=== PATIENT | female | born 1955 | race Caucasian/White ===

== ENCOUNTER → 2016-07-31 | Outpatient (CLI) | payer BC | END | disposition home or self-care (01) | LOC: LABWHC1 13:03 | PROVIDERS: ATTEND Internal Medicine Endocrinology, Diabetes & Metabolism | DX: E05.00 Thyrotoxicosis with diffuse goiter without thyrotoxic crisis or storm (principal) | CPT/HCPCS: 36415; 82306; 84439; 84443 ==

== ENCOUNTER → 2016-09-26 | Outpatient (CLI) | payer BC ==
[2016-09-26 15:29] LABS: CH 31.4; CHCM 33.7; HCT 39.3 % (34.0-46.0); HGB 12.9 gm/dL (11.4-16.0); MCH 30.8 pg (25.0-35.0); MCHC 32.9 g/dL (31.0-37.0); MCV 93.7 fL (80.0-100.0); Mean Platelet Volume 6.9; RDW 12.8 % (11.5-15.5); WBC 5.4 k/uL (3.8-10.6)
[2016-09-26 15:51] LABS: ALT 25 U/L (9-52); AST 13 U/L (14-36); Alkaline Phosphatase 82 U/L (38-126); Anion Gap 10 mmol/L; Bilirubin, Delta 0.2 mg/dL (0.0-0.2); Blood Urea Nitrogen 13 mg/dL (7-17); C Reactive Protein 44.7 mg/L (<10.0); Calcium 9.6 mg/dL (8.4-10.2); Carbon Dioxide 28 mmol/L (22-30); Chloride 105 mmol/L (98-107); Glucose 94 mg/dL (74-99); Non-African American GFR(MDRD) >60 (>60 ml/min/1.73 sqM); Potassium 5.1 mmol/L (3.5-5.1); Rheumatoid Factor, Qnt 73 IU/mL (<12); Sodium 143 mmol/L (137-145); Total Bilirubin 0.7 mg/dL (0.2-1.3); Total Protein 6.8 g/dL (6.3-8.2); Uric Acid 5.9 mg/dL (3.7-7.4)
[2016-09-26 16:18] LABS: Erythrocyte Sedimentation Rate 24 mm/hr (0-20)
[2016-09-26 18:37] LABS: RBC, Body Fluid 130 /uL
[2016-09-27 02:13] LABS: ANA w/Reflex to Titer NEGATIVE (NEGATIVE)
[2016-09-27 05:13] LABS: Lyme Antibodies Total(IgG/IgM) 0.05 (<0.90)
[2016-09-27 07:27] LABS: Synovial Crystal Source Left Knee
[2016-09-27 12:53] LABS: HLA B27 NEGATIVE; HLA B27 Comment SEEBELOW
== END ==
LOC: LABWHC1 14:30 → EDSTATUS 14:32
PROVIDERS: ATTEND Orthopaedic Surgery
DX: M79.644 Pain in right finger(s) (principal); M65.321 Trigger finger, right index finger; M25.511 Pain in right shoulder; M65.811 Other synovitis and tenosynovitis, right shoulder; M25.562 Pain in left knee
CPT/HCPCS: 36415; 80053; 80306; 82248; 83520; 84165; 84443; 84550; 85027; 85652; 86038; 86060; 86140; 86431; 86618; 86812; 87070; 87205; 89050; 89060

== ENCOUNTER → 2016-10-06 | Outpatient (CLI) | payer BC | LOC: LABWHC1 11:32 | PROVIDERS: ATTEND Internal Medicine Endocrinology, Diabetes & Metabolism | DX: E05.00 Thyrotoxicosis with diffuse goiter without thyrotoxic crisis or storm (principal); E04.1 Nontoxic single thyroid nodule | CPT/HCPCS: 36415; 82306; 84439; 84443 ==

== ENCOUNTER → 2017-01-16 | Outpatient (CLI) | payer BC ==
--- NOTE | 2017-01-18 08:53 | MM ---
Reason for exam: screening (asymptomatic). Last mammogram was performed 1 year and 1 month ago. History: Patient is postmenopausal. Took hormonal contraceptives for 4 years beginning at age 46. Physical Findings: A clinical breast exam by your physician is recommended on an annual basis and results should be correlated with mammographic findings. MG 3D Screening Mammo W/Cad Bilateral CC and MLO view(s) were taken. Prior study comparison: December 29, 2015, bilateral MG screening mammo w CAD. December 14, 2014, bilateral MG screening mammo w CAD. November 26, 2013, bilateral MG screening mammo w CAD. The breast tissue is almost entirely fat. No significant changes when compared with prior studies. ASSESSMENT: Negative, BI-RAD 1 RECOMMENDATION: Routine screening mammogram of both breasts in 1 year.
== END | disposition home or self-care (01) ==
LOC: RADMAMWWP 11:56
PROVIDERS: ATTEND Obstetrics & Gynecology
DX: Z12.31 Encounter for screening mammogram for malignant neoplasm of breast (principal)
CPT/HCPCS: 77063; G0202

== ENCOUNTER → 2017-01-31 | Outpatient (CLI) | payer BC | LOC: LABWHC1 11:36 | PROVIDERS: ATTEND Internal Medicine Endocrinology, Diabetes & Metabolism | DX: E89.0 Postprocedural hypothyroidism (principal) | CPT/HCPCS: 36415; 84439; 84443 ==

== ENCOUNTER → 2017-06-05 | Outpatient (CLI) | payer BC ==
[2017-06-05 14:14] LABS: Calcium 10.1 mg/dL (8.4-10.2)
== END | disposition home or self-care (01) ==
LOC: LABWHC1 13:21
PROVIDERS: ATTEND Internal Medicine Endocrinology, Diabetes & Metabolism
DX: E89.0 Postprocedural hypothyroidism (principal)
CPT/HCPCS: 36415; 82306; 82310; 82523; 84075; 84439; 84443

== ENCOUNTER 2017-08-10 16:29 | Emergency (ER) | payer BC ==
[2017-08-10 17:04] VITALS: BP 142/65; PULSE 78; RESP 18; TEMP 97.6
[2017-08-10] MEDS ORDERED: DIPH,PERTUS(ACELL)TETVAC-LF 0.5 ML VIAL IM ONE (17:35)
--- NOTE | 2017-08-10 17:44 | XR ---
EXAMINATION TYPE: XR wrist limited RT DATE OF EXAM: 08/10/2017 COMPARISON: NONE HISTORY: Wrist pain TECHNIQUE: 4 views FINDINGS: I see no fracture nor dislocation. Joint spaces are normal. There is no sign of radiopaque foreign body. There is soft tissue deformity anteriorly consistent with laceration. IMPRESSION: Laceration deformity. No fracture seen.
--- NOTE | 2017-08-10 19:05 | ED ---
Wound/Laceration HPI - General Chief Complaint: Wound/Laceration Stated Complaint: Wrist Laceration Time Seen by Provider: 08/10/17 17:17 Source: patient, RN notes reviewed Mode of arrival: ambulatory Limitations: no limitations - History of Present Illness Initial Comments: This is a 62-year-old female who presents to the emergency department with chief complaint of right wrist laceration. Patient states that prior to arrival , this evening she was shopping at [employer]. She reached up to grab an object high on the shelf and bumped her right wrist against the glass shelf edge. At first, patient did not realize she had lacerated her wrist. When she got to the register, she noticed that she was bleeding. On presentation, bleeding is controlled. Patient states she does not believe she is up-to-date with her tetanus vaccination. Patient denies any other injuries or trauma. Denies fever or chills, cough or congestion, abdominal pain, nausea or vomiting , dizziness or headache. - Related Data Allergies Allergy/AdvReac Type Severity Reaction Status Date / Time No Known Allergies Allergy Verified 08/10/17 17:04 Review of Systems ROS Statement: Those systems with pertinent positive or pertinent negative responses have been documented in the HPI. ROS Other: All systems not noted in ROS Statement are negative. Past Medical History Past Medical History: Rheumatoid Arthritis (RA) History of Any Multi-Drug Resistant Organisms: None Reported Past Surgical History: No Surgical Hx Reported Past Psychological History: No Psychological Hx Reported Smoking Status: Never smoker Past Alcohol Use History: Occasional Past Drug Use History: None Reported General Exam - General Exam Comments Initial Comments: General: Awake and alert, well-developed; in no apparent distress. is at bedside. HEENT: Head atraumatic, normocephalic. Pupils are equal, round and reactive to light. Extraocular movements intact. Oropharynx moist without erythema or exudate. Neck: Supple. Normal ROM. Cardiovascular: Regular rate and rhythm. No murmurs, rubs or gallops. Chest symmetrical. Respiratory: Lungs clear to auscultation bilaterally. No wheezes, rales or rhonchi. Normal respiratory effort with no use of accessory muscles. Musculoskeletal: Normal active range of motion of right wrist, hand and fingers. Capillary refill < 2 seconds. Sensation is intact. There is an approximately 2.0 inch linear laceration anterior wrist. Radial pulses are 2+ equal and palpable bilaterally. No active bleeding. Skin: [place], warm and dry without rashes or lesions. Neurological: Alert and oriented x3. CN II-XII grossly intact. Speech is fluent and answers are appropriate. No focal neuro deficits. Psychiatric: Normal mood and affect. No overt signs of depression or anxiety noted. Limitations: no limitations Course Vital Signs 08/10/17 17:01 Temperature 97.6 F Pulse Rate 78 Respiratory 18 Rate Blood Pressure 142/65 O2 Sat by Pulse 98 Oximetry Procedures - Laceration Laceration #1 Consent Obtained: verbal consent Indication: laceration Site: upper extremity (right anterior wrist) Size (cm): 5 Description: linear Depth: involves muscle layer Anesthesia Technique: local infiltration Amount (mls): 5 Pre-repair: wound explored, irrigated extensively, deep structures intact Type of Sutures: nylon, vicryl Size of Sutures: 4-0 (vicryl), 5-0 (nylon) Number of Sutures: 9 (8 nylon) Technique: simple, interrupted Patient Tolerated Procedure: well, no complications Medical Decision Making - Medical Decision Making This is a 62-year-old female who presented to the emergency department with chief complaint of right wrist laceration. Patient has full active range of motion of all fingers and wrist. No active bleeding. Sensation is intact. Radial pulses are 2+ equal and palpable bilaterally. Tendon was visualized on physical examination with suspicion for possible laceration to the tendon. Strongly recommended follow up with Jose Rafael Lara for further evaluation. 8 external nylon sutures and one internal Vicryl suture were placed. Recommended removal of the external sutures in 10-14 days. Patient tolerated well without complication and is neurovascularly intact. She was made up-to-date with her tetanus vaccination. Patient is in no acute distress and will be discharged home. She is in agreement with plan and voices understanding. All questions were answered. Disposition Clinical Impression: Laceration of right wrist Disposition: HOME SELF-CARE Condition: Good Instructions: Laceration (ED), Tendon Laceration (ED) Additional Instructions: Please follow-up with Dr. Jose Rafael Lara within 1-2 days for further evaluation of possible tendon laceration. Please keep sutures clean and dry for the next 24-48 hours. Please have these external sutures removed in 10-14 days either here at the emergency department or with primary care provider. May apply ice and take Tylenol or ibuprofen as needed for pain. Please return to the emergency department if any concerns arise or symptoms worsen. Referrals: Pedro Carrington MD [Primary Care Provider] - 1-2 days Naman Lara DO [Doctor of Osteopathic Medicine] - 1-2 days Time of Disposition: 19:05
== END 2017-08-10 19:10 | disposition home or self-care (01) ==
LOC: EC 16:29
DX: S61.511A Laceration without foreign body of right wrist, initial encounter (principal); Z23 Encounter for immunization; W22.8XXA Striking against or struck by other objects, initial encounter; Y93.89 Activity, other specified; Y92.89 Other specified places as the place of occurrence of the external cause
CPT/HCPCS: 12042; 90471; 90715; 99282

== ENCOUNTER → 2017-10-18 | Outpatient (CLI) | payer BC ==
[2017-10-18 11:21] LABS: T4, Free (Free Thyroxine) 1.13 ng/dL (0.78-2.19)
== END | disposition home or self-care (01) ==
LOC: LABWHC1 10:17
PROVIDERS: ATTEND Internal Medicine Endocrinology, Diabetes & Metabolism
DX: E89.0 Postprocedural hypothyroidism (principal)
CPT/HCPCS: 36415; 84439; 84443

== ENCOUNTER → 2018-02-15 | Outpatient (CLI) | payer BC ==
[2018-02-15 11:46] LABS: T4, Free (Free Thyroxine) 1.29 ng/dL (0.78-2.19)
== END | disposition home or self-care (01) ==
LOC: LABWHC1 10:24
PROVIDERS: ATTEND Internal Medicine Endocrinology, Diabetes & Metabolism
DX: E89.0 Postprocedural hypothyroidism (principal)
CPT/HCPCS: 36415; 84439; 84443

== ENCOUNTER → 2018-02-19 | Outpatient (CLI) | payer BC ==
--- NOTE | 2018-02-26 10:08 | MM ---
Reason for exam: screening (asymptomatic). Last mammogram was performed 1 year and 1 month ago. History: Patient is postmenopausal. Took hormonal contraceptives for 4 years beginning at age 46. Physical Findings: A clinical breast exam by your physician is recommended on an annual basis and results should be correlated with mammographic findings. MG 3D Screening Mammo W/Cad Bilateral CC and MLO view(s) were taken. Prior study comparison: January 16, 2017, bilateral MG 3d screening mammo w/cad. December 29, 2015, bilateral MG screening mammo w CAD. There are scattered fibroglandular densities. There is benign appearing round calcifications bilaterally. There is chronic nodularity bilaterally. There is no discrete abnormality. ASSESSMENT: Benign, BI-RAD 2 RECOMMENDATION: Routine screening mammogram of both breasts in 1 year.
== END | disposition home or self-care (01) ==
LOC: RADMAMWWP 10:52
PROVIDERS: ATTEND Obstetrics & Gynecology
DX: Z12.31 Encounter for screening mammogram for malignant neoplasm of breast (principal)
CPT/HCPCS: 77063; 77067

== ENCOUNTER → 2018-05-21 | Outpatient (CLI) | payer BC ==
[2018-05-21 19:38] LABS: T4, Free (Free Thyroxine) 1.2 ng/dL (0.80-1.80)
== END | disposition home or self-care (01) ==
LOC: LABWHC1 13:10
PROVIDERS: ATTEND Internal Medicine Endocrinology, Diabetes & Metabolism
DX: E89.0 Postprocedural hypothyroidism (principal)
CPT/HCPCS: 36415; 84439; 84443

== ENCOUNTER → 2019-03-19 | Outpatient (CLI) | payer BC ==
--- NOTE | 2019-03-20 13:39 | MM ---
Reason for exam: screening (asymptomatic). Last mammogram was performed 1 year and 1 month ago. History: Patient is postmenopausal. Took hormonal contraceptives for 4 years beginning at age 46. Physical Findings: A clinical breast exam by your physician is recommended on an annual basis and results should be correlated with mammographic findings. MG 3D Screening Mammo W/Cad Bilateral CC and MLO view(s) were taken. Prior study comparison: February 19, 2018, bilateral MG 3d screening mammo w/cad. January 16, 2017, bilateral MG 3d screening mammo w/cad. There are scattered fibroglandular densities. There is no discrete abnormality. No significant changes when compared with prior studies. ASSESSMENT: Negative, BI-RAD 1 RECOMMENDATION: Routine screening mammogram of both breasts in 1 year.
== END | disposition home or self-care (01) ==
LOC: RADMAMWWP 08:48
PROVIDERS: ATTEND Obstetrics & Gynecology
DX: Z12.31 Encounter for screening mammogram for malignant neoplasm of breast (principal)
CPT/HCPCS: 77063; 77067

== ENCOUNTER → 2019-05-05 | Outpatient (CLI) | payer BC ==
--- NOTE | 2019-05-06 07:43 | ECHOF ---
Referral Reason:I34.1 Mitral valve prolasp MEASUREMENTS -------- HEIGHT: 172.7 cm WEIGHT: 78.5 kg BP: RVIDd: 3.0 cm (< 3.3) IVSd: 1.2 cm (0.6 - 1.1) LVIDd: 4.6 cm (3.9 - 5.3) LVPWd: 1.5 cm (0.6 - 1.1) IVSs: 1.9 cm LVIDs: 2.7 cm LVPWs: 1.8 cm LAESV Index (A-L): 50.03 ml/m Ao Diam: 3.1 cm (2.0 - 3.7) AV Cusp: 2.0 cm (1.5 - 2.6) LA Diam: 2.9 cm (2.7 - 3.8) MV EXCURSION: 15.618 mm (> 18.000) MV EF SLOPE: 72 mm/s (70 - 150) EPSS: 0.4 cm MV E Hira: 1.04 m/s MV DecT: 238 ms MV A Hira: 0.90 m/s MV E/A Ratio: 1.15 AR PHT: 507 ms RAP: 5.00 mmHg RVSP: 37.86 mmHg FINDINGS -------- Sinus rhythm. This was a technically good study. The left ventricular size is normal. There is mild concentric left ventricular hypertrophy. Overa ll left ventricular systolic function is normal with, an EF between 60 - 65 %. The diastolic fillin g pattern is normal for the age of the patient 14.33. The right ventricle is normal in size. LA is severely dilated >40 ml/m2 The right atrial size is normal. Interatrial and interventricular septum intact. There is mild aortic valve sclerosis. There is xnjc-[id number] aortic regurgitation. The mitral valve leaflets are moderately thickened. Moderate mitral regurgitation is present. The re is moderate mitral valve prolapse. Mild tricuspid regurgitation present. There is mild pulmonary hypertension. The right ventricular systolic pressure, as measured by Doppler, is 37.86mmHg. There is no pulmonic regurgitation present. The aortic root size is normal. The inferior vena cava is mildly dilated. There is no pericardial effusion. CONCLUSIONS -------- 1. Sinus rhythm. 2. This was a technically good study. 3. The left ventricular size is normal. 4. There is mild concentric left ventricular hypertrophy. 5. Overall left ventricular systolic function is normal with, an EF between 60 - 65 %. 6. The diastolic filling pattern is normal for the age of the patient 14.33 7. The right ventricle is normal in size. 8. LA is severely dilated >40 ml/m2 9. The right atrial size is normal. 10. Interatrial and interventricular septum intact. 11. There is mild aortic valve sclerosis. 12. There is ojwf-[id number] aortic regurgitation. 13. The mitral valve leaflets are moderately thickened. 14. There is moderate mitral valve prolapse. 15. Mild tricuspid regurgitation present. 16. There is mild pulmonary hypertension. 17. The right ventricular systolic pressure, as measured by Doppler, is 37.86mmHg. 18. There is no pulmonic regurgitation present. 19. The aortic root size is normal. 20. The inferior vena cava is mildly dilated. 21. There is no pericardial effusion. RESOURCE ENGINEER: Phoebe Rivera RDCS
== END | disposition home or self-care (01) ==
LOC: RADECHMAIN 12:50
PROVIDERS: ATTEND Internal Medicine
DX: I08.2 Rheumatic disorders of both aortic and tricuspid valves (principal); I27.20 Pulmonary hypertension, unspecified
CPT/HCPCS: 93306

== ENCOUNTER → 2020-03-18 | Outpatient (CLI) | payer MEDICARE ==
--- NOTE | 2020-03-19 11:05 | MM ---
Reason for exam: screening (asymptomatic). Last mammogram was performed 1 year ago. History: Patient is postmenopausal. Took hormonal contraceptives for 4 years beginning at age 46. Physical Findings: A clinical breast exam by your physician is recommended on an annual basis and results should be correlated with mammographic findings. MG 3D Screening Mammo W/Cad Bilateral CC and MLO view(s) were taken. Prior study comparison: March 19, 2019, bilateral MG 3d screening mammo w/cad. February 19, 2018, bilateral MG 3d screening mammo w/cad. There are scattered fibroglandular densities. No significant changes when compared with prior studies. ASSESSMENT: Benign, BI-RAD 2 RECOMMENDATION: Routine screening mammogram of both breasts in 1 year.
== END | disposition home or self-care (01) ==
LOC: RADMAMWWP 16:14
PROVIDERS: ATTEND Obstetrics & Gynecology
DX: Z12.31 Encounter for screening mammogram for malignant neoplasm of breast (principal)
CPT/HCPCS: 77063; 77067

== ENCOUNTER → 2021-03-28 | Outpatient (CLI) | payer MEDICARE ==
--- NOTE | 2021-03-29 09:43 | MM ---
Reason for exam: screening (asymptomatic). Last mammogram was performed 1 year ago. History: Patient is postmenopausal. Took hormonal contraceptives for 4 years beginning at age 46. Physical Findings: A clinical breast exam by your physician is recommended on an annual basis and results should be correlated with mammographic findings. MG 3D Screening Mammo W/Cad Bilateral CC and MLO view(s) were taken. Prior study comparison: March 18, 2020, bilateral MG 3d screening mammo w/cad. March 19, 2019, bilateral MG 3d screening mammo w/cad. February 19, 2018, bilateral MG 3d screening mammo w/cad. There are scattered fibroglandular densities. There are benign appearing round calcifications bilaterally. There is no discrete abnormality. ASSESSMENT: Benign, BI-RAD 2 RECOMMENDATION: Routine screening mammogram of both breasts in 1 year.
== END | disposition home or self-care (01) ==
LOC: RADMAMWWP 11:56
PROVIDERS: ATTEND Obstetrics & Gynecology
DX: Z12.31 Encounter for screening mammogram for malignant neoplasm of breast (principal); Z78.0 Asymptomatic menopausal state
CPT/HCPCS: 77063; 77067

== ENCOUNTER 2021-08-06 01:32 | Inpatient (IN) | payer MEDICARE ==
[2021-08-06] MEDS ORDERED: SODIUM CHLORIDE 0.9% 500 ML 500 ML IV STA (01:50)
[2021-08-06] MEDS ORDERED: LORazepam 2 MG/ML INJ IV STA (01:56)
[2021-08-06] MEDS ORDERED: DILTIAZEM DRIP BOLUS FROM BAG 1 MG SOLN IV ONE (01:57)
[2021-08-06 02:09] LABS: Basophils # (A) 0.1 k/uL (0-0.2); Basophils % (A) 1 %; Eosinophils # (A) 0.2 k/uL (0-0.7); Eosinophils % (A) 3 %; HCT 44.3 % (34.0-46.0); HGB 15.2 gm/dL (11.4-16.0); Lymphocytes # (A) 3.7 k/uL (1.0-4.8); Lymphocytes % (A) 54 %; MCH 32.7 pg (25.0-35.0); MCHC 34.4 g/dL (31.0-37.0); MCV 95.3 fL (80.0-100.0); Mean Platelet Volume 7.6; Monocytes # (A) 0.4 k/uL (0-1.0); Monocytes % (A) 5 %; Neutrophils # (A) 2.4 k/uL (1.3-7.7); Neutrophils % (A) 34 %; Platelet Count 210 k/uL (150-450); RBC 4.65 m/uL (3.80-5.40); RDW 13.1 % (11.5-15.5)
[2021-08-06] MEDS: DILTIAZEM 125 MG in SODIUM CHLORIDE 0.9% 100 ML IV SCH ×2 (02:14→18:02)
[2021-08-06 02:21] LABS: INR 0.9 (<1.2); Prothrombin Time 10.3 sec (9.0-12.0)
[2021-08-06 02:27] LABS: ALT 25 U/L (4-34); AST 29 U/L (14-36); African American GFR (CKD) >90 (>60 ml/min/1.73 sqM); Albumin 4.4 g/dL (3.5-5.0); Alkaline Phosphatase 95 U/L (38-126); Anion Gap 5 mmol/L; Blood Urea Nitrogen 13 mg/dL (7-17); Calcium 9.7 mg/dL (8.4-10.2); Carbon Dioxide 29 mmol/L (22-30); Chloride 108 mmol/L (98-107); Glucose 129 mg/dL (74-99); Magnesium 2.1 mg/dL (1.6-2.3); Non-African American GFR(CKD) >90 (>60 ml/min/1.73 sqM); Potassium 4.4 mmol/L (3.5-5.1); Sodium 142 mmol/L (137-145); Total Bilirubin 0.7 mg/dL (0.2-1.3); Total Protein 7.5 g/dL (6.3-8.2)
--- NOTE | 2021-08-06 02:29 | XR ---
EXAMINATION TYPE: XR chest 2V DATE OF EXAM: 08/06/2021 COMPARISON: NONE HISTORY: Dysrhythmia TECHNIQUE: 2 views FINDINGS: There is no heart failure nor confluent pneumonic infiltrate. Costophrenic angles are clear . There are no hilar masses. Bony thorax is intact. Sternum is intact. IMPRESSION: No active cardiopulmonary disease. Normal heart.
--- NOTE | 2021-08-06 02:55 | ED ---
Arrhythmia/Palpitations HPI - General Chief Complaint: Arrhythmia/Palpitations Stated Complaint: Palpitations Time Seen by Provider: 08/06/21 01:49 Source: patient Mode of arrival: ambulatory Limitations: no limitations - History of Present Illness Initial Comments: This patient is 66-year-old woman who presents to be evaluated for palpitations. The patient states that she was trying to go to bed tonight around o'clock and she noticed that her heart "started pounding." The rate was also fast. She states is preventing her from sleeping. When the symptoms did not resolve she presented to be evaluated here. The patient denies any associated symptoms. Denies history of previous atrial fibrillation or other arrhythmia. MD Complaint: palpitations -: hour(s) Context: occurred during rest Associated Symptoms: denies other symptoms - Related Data Allergies Allergy/AdvReac Type Severity Reaction Status Date / Time No Known Allergies Allergy Verified 08/06/21 01:37 Review of Systems ROS Statement: Those systems with pertinent positive or pertinent negative responses have been documented in the HPI. ROS Other: All systems not noted in ROS Statement are negative. Constitutional: Denies: fever, chills Respiratory: Denies: cough, dyspnea Cardiovascular: Reports: palpitations. Denies: chest pain, edema, syncope Gastrointestinal: Denies: abdominal pain, nausea, vomiting, melena, hematochezia Genitourinary: Denies: dysuria, hematuria Musculoskeletal: Denies: back pain Skin: Denies: rash Neurological: Denies: headache, weakness, numbness Psychiatric: Reports: anxiety Past Medical History Past Medical History: Rheumatoid Arthritis (RA) Additional Past Medical History / Comment(s): COVID 04/28 History of Any Multi-Drug Resistant Organisms: None Reported Past Surgical History: Tonsillectomy Past Psychological History: No Psychological Hx Reported Smoking Status: Never smoker Past Alcohol Use History: Occasional Past Drug Use History: None Reported General Exam Limitations: no limitations General appearance: alert, in no apparent distress, anxious Head exam: Present: atraumatic, normocephalic Eye exam: Present: normal appearance. Absent: scleral icterus, conjunctival injection Neck exam: Present: normal inspection, full ROM Respiratory exam: Present: normal lung sounds bilaterally. Absent: respiratory distress, wheezes, rales, rhonchi, stridor Cardiovascular Exam: Present: regular rate, normal rhythm, normal heart sounds. Absent: systolic murmur, diastolic murmur, rubs, gallop GI/Abdominal exam: Present: soft. Absent: distended, tenderness, guarding, rebound, rigid, mass Extremities exam: Present: normal inspection, normal capillary refill. Absent: pedal edema, calf tenderness Back exam: Present: normal inspection. Absent: CVA tenderness (R), CVA tenderness (L) Neurological exam: Present: alert Psychiatric exam: Present: anxious Skin exam: Present: warm, dry, intact, normal color. Absent: rash Course Vital Signs 08/06/21 08/06/21 08/06/21 01:34 02:00 03:04 Temperature 98.0 F Pulse Rate 65 135 H 105 H Respiratory 20 20 Rate Blood Pressure 177/76 150/85 O2 Sat by Pulse 98 98 Oximetry EKG Findings - EKG Results: EKG: interpreted by ERMD EKG shows: atrial fibrillation (Rates 127 bpm) - Blocks, [place], Hypertrophy, ST Abn: AV and intraventricular conduction: right bundle branch block (fixed/intermittent, complete/incomplete) (Incomplete) Repolarization changes or abnormalities: nonspecific abnormality, ST segment, and/or T wave Medical Decision Making - Lab Data Result diagrams: 08/06/21 01:53 08/06/21 01:53 Lab Results 08/06/21 08/06/21 08/06/21 Range/Units 01:53 01:53 01:53 WBC 7.0 (3.8-10.6) k/uL RBC 4.65 (3.80-5.40) m/uL Hgb 15.2 (11.4-16.0) gm/dL Hct 44.3 (34.0-46.0) % MCV 95.3 (80.0-100.0) fL MCH 32.7 (25.0-35.0) pg MCHC 34.4 (31.0-37.0) g/dL RDW 13.1 (11.5-15.5) % Plt Count 210 (150-450) k/uL MPV 7.6 Neutrophils % 34 % Lymphocytes % 54 % Monocytes % 5 % Eosinophils % 3 % Basophils % 1 % Neutrophils # 2.4 (1.3-7.7) k/uL Lymphocytes # 3.7 (1.0-4.8) k/uL Monocytes # 0.4 (0-1.0) k/uL Eosinophils # 0.2 (0-0.7) k/uL Basophils # 0.1 (0-0.2) k/uL PT 10.3 (9.0-12.0) sec INR 0.9 (<1.2) APTT 24.0 (22.0-30.0) sec Sodium 142 (137-145) mmol/L Potassium 4.4 (3.5-5.1) mmol/L Chloride 108 H (98-107) mmol/L Carbon Dioxide 29 (22-30) mmol/L Anion Gap 5 mmol/L BUN 13 (7-17) mg/dL Creatinine 0.64 (0.52-1.04) mg/dL Est GFR (CKD-EPI)AfAm >90 (>60 ml/min/1.73 sqM) Est GFR (CKD-EPI)NonAf >90 (>60 ml/min/1.73 sqM) Glucose 129 H (74-99) mg/dL Calcium 9.7 (8.4-10.2) mg/dL Magnesium 2.1 (1.6-2.3) mg/dL Total Bilirubin 0.7 (0.2-1.3) mg/dL AST 29 (14-36) U/L ALT 25 (4-34) U/L Alkaline Phosphatase 95 (38-126) U/L Troponin I (0.000-0.034) ng/mL Total Protein 7.5 (6.3-8.2) g/dL Albumin 4.4 (3.5-5.0) g/dL TSH 14.100 H (0.465-4.680) mIU/L Coronavirus (PCR) (Not Detectd) 08/06/21 08/06/21 Range/Units 01:53 01:53 WBC (3.8-10.6) k/uL RBC (3.80-5.40) m/uL Hgb (11.4-16.0) gm/dL Hct (34.0-46.0) % MCV (80.0-100.0) fL MCH (25.0-35.0) pg MCHC (31.0-37.0) g/dL RDW (11.5-15.5) % Plt Count (150-450) k/uL MPV Neutrophils % % Lymphocytes % % Monocytes % % Eosinophils % % Basophils % % Neutrophils # (1.3-7.7) k/uL Lymphocytes # (1.0-4.8) k/uL Monocytes # (0-1.0) k/uL Eosinophils # (0-0.7) k/uL Basophils # (0-0.2) k/uL PT (9.0-12.0) sec INR (<1.2) APTT (22.0-30.0) sec Sodium (137-145) mmol/L Potassium (3.5-5.1) mmol/L Chloride (98-107) mmol/L Carbon Dioxide (22-30) mmol/L Anion Gap mmol/L BUN (7-17) mg/dL Creatinine (0.52-1.04) mg/dL Est GFR (CKD-EPI)AfAm (>60 ml/min/1.73 sqM) Est GFR (CKD-EPI)NonAf (>60 ml/min/1.73 sqM) Glucose (74-99) mg/dL Calcium (8.4-10.2) mg/dL Magnesium (1.6-2.3) mg/dL Total Bilirubin (0.2-1.3) mg/dL AST (14-36) U/L ALT (4-34) U/L Alkaline Phosphatase (38-126) U/L Troponin I <0.012 (0.000-0.034) ng/mL Total Protein (6.3-8.2) g/dL Albumin (3.5-5.0) g/dL TSH (0.465-4.680) mIU/L Coronavirus (PCR) Not Detected (Not Detectd) Disposition Clinical Impression: Atrial fibrillation with rapid ventricular response Disposition: ADMITTED IP TO THIS HOSP Condition: Fair Is patient prescribed a controlled substance at d/c from ED?: No Referrals: Jose Miguel Swann MD [Primary Care Provider] - 1-2 days
[2021-08-06] MEDS ORDERED: HEPARIN SODIUM 1,000 UN/ML (10ML VL) IV ONE (03:45)
[2021-08-06] MEDS ORDERED: HEPARIN SODIUM 1,000 UN/ML (10ML VL) IV PRN (03:45)
--- NOTE | 2021-08-06 03:49 | P.HPIM ---
History of Present Illness H&P Date: 08/06/21 Patient is a 66-year-old female with a PMH of rheumatoid arthritis (not on medications), and mitral valve prolapse who presented to the emergency room with complaints of palpitations. The patient reports that she woke up suddenly tonight at 11 PM with severe palpitations. She reports having a long-standing history of mitral valve prolapse for which she had been following with cardiology for several years. She reports having undergone an EKG and subsequently a stress test this past after which she wore a Holter monitor for 24 hours. She reports being told that all her testing was u nremarkable. She denied any prior history of A. fib but did state a significant family history with multiple family members including 2 siblings and her mother being diagnosed with A. fib with mitral valve prolapse. The patient reported feeling better at time of interview. She reported significant improvement in her palpitations and denied any additional complaints. She denied chest discomfort, shortness of breath, nausea, dizziness, diaphoresis. Also denied fever, chills, cough, abdominal pain, diarrhea. EKG in emergency room revealed A. fib with RVR at 127 bpm with an incomplete right bundle branch block. Chest x-ray was unremarkable. Laboratory evaluation was remarkable for TSH of 14.1. Review of systems: Pertinent positives and negatives as discussed in HPI, a complete review of systems was performed and all other systems are negative. Physical examination: General: non toxic, no distress, appears at stated age, normal weight Derm: no unusual rashes/lesions no unusual ecchymoses, warm, dry Head: atraumatic, normocephalic, symmetric Eyes: EOMI, no lid lag, anicteric sclera, pupils equal round reactive to light ENT: Nose and ears atraumatic, no thrush, no pharyngeal erythema Neck: No thyromegaly, no cervical lymphadenopathy, trachea midline, supple Mouth: no lip lesion, mucus membranes moist Cardiovascular: Irregularly irregular, no murmur, positive posterior tibial pulse bilateral, no edema, capillary refill less than 2 seconds Lungs: CTA bilateral, no rhonchi, no rales , no accessory muscle use Abdominal: soft, nontender to palpation, no guarding, no appreciable organomegaly, normal bowel sounds Ext: no gross muscle atrophy, muscle strength 5 out of 5 in all 4 extremities grossly, no contractures, Neuro: CN II-XI grossly intact, light touch intact all 4 extremities, finger to nose within normal limits, Psych: Alert, oriented, appropriate affect Assessment/plan Newly diagnosed A. fib with RVR in setting of mitral valve prolapse history -Cardiology consult -C/w Cardizem infusion -Echocardiogram -Cardiac monitoring -Heparin infusion Elevated TSH -Obtain T4 and T3 levels DVT prophylaxis -Heparin infusion The patient is admitted with an anticipated greater than 2 midnight stay for evaluation of afib CODE STATUS: Full Code Discussed with: Patient Anticipated discharge date: 2-[address]: Home Past Medical History Past Medical History: Rheumatoid Arthritis (RA) Additional Past Medical History / Comment(s): COVID 04/28 History of Any Multi-Drug Resistant Organisms: None Reported Past Surgical History: Tonsillectomy Past Psychological History: No Psychological Hx Reported Smoking Status: Never smoker Past Alcohol Use History: Occasional Past Drug Use History: None Reported Medications and Allergies Allergies Allergy/AdvReac Type Severity Reaction Status Date / Time No Known Allergies Allergy Verified 08/06/21 01:37 Physical Exam Vitals: Vital Signs Temp Pulse Resp BP Pulse Ox 08/06/21 03:04 105 H 20 150/85 98 08/06/21 02:00 135 H 08/06/21 01:34 98.0 F 65 20 177/76 98 Intake and Output 08/05/21 08/05/21 08/06/21 14:59 22:59 06:59 Other: Weight 76.204 kg Results CBC & Chem 7: 08/06/21 01:53 08/06/21 01:53 Labs: Abnormal Lab Results - Last 24 Hours (Table) 08/06/21 Range/Units 01:53 Chloride 108 H (98-107) mmol/L Glucose 129 H (74-99) mg/dL TSH 14.100 H (0.465-4.680) mIU/L
[2021-08-06] MEDS: HEPARIN SOD,PORK IN 0.45% NACL 25,000 UNIT in 0.45% NACL 1 250ML.BAG IV SCH (04:07)
[2021-08-06] MEDS ORDERED: NITROGLYCERIN SL TABS 0.4 MG TAB SUBLINGUAL PRN (04:59)
[2021-08-06 05:10] LABS: Basophils % (A) 1 %; Eosinophils # (A) 0.2 k/uL (0-0.7); Eosinophils % (A) 3 %; HCT 41.5 % (34.0-46.0); Lymphocytes # (A) 2.7 k/uL (1.0-4.8); Lymphocytes % (A) 47 %; MCH 32.5 pg (25.0-35.0); MCHC 33.8 g/dL (31.0-37.0); MCV 96.2 fL (80.0-100.0); Mean Platelet Volume 7.7; Monocytes # (A) 0.3 k/uL (0-1.0); Monocytes % (A) 5 %; Neutrophils # (A) 2.5 k/uL (1.3-7.7); Neutrophils % (A) 43 %; Platelet Count 189 k/uL (150-450); RBC 4.31 m/uL (3.80-5.40); RDW 13.3 % (11.5-15.5); WBC 5.9 k/uL (3.8-10.6)
[2021-08-06 05:26] LABS: Partial Thromboplastin Time 81.3 sec (22.0-30.0); Prothrombin Time 11.2 sec (9.0-12.0)
--- NOTE | 2021-08-06 10:37 | P.CRDCN ---
History of Present Illness Consult date: 08/06/21 History of present illness: History of presenting illness:: Patient is a very pleasant 66-year-old female with a past medical history of rheumatoid arthritis and mitral valve prolapse. She presented to the emergency department overnight with a chief complaint of palpitations and feeling as though her heart was beating very fast. Patient was found to be in atrial fibrillation with RVR. EKG revealing A. fib RVR at 127 bpm. CBC and CMP unremarkable. Troponins negative 3. TSH elevated at 14.100 with normal free T4 and total T3. Patient admitted under internal medicine services and we were consulted for cardiac management. At time of assessment patient remained in atrial fibrillation with rate fluctuating between 80s and 110s. She reported continued palpitations but denied having any headache, lightheadedness, dizziness, chest pain, shortness of breath, dyspnea with exertion, abdominal pain, nausea, vomiting, or experiencing any numbness/tingling/weakness/swelling in her extremities. 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 Review of systems: Pertinent positives and negatives as discussed in HPI, a complete review of systems was performed and all other systems are negative. Physical exam: Vital signs reviewed and stable. General: Nontoxic, no distress and appears stated age. Derm: Skin warm and dry, normal coloration for ethnicity. Head: Atraumatic, normocephalic and symmetric. Eyes: EOMs intact, no lid lag, and anicteric sclera Mouth: no lip lesions, mucus membranes moist Cardiovascular: Irregularly irregular rate and rhythm, systolic murmur present. Positive posterior tibial pulses bilaterally, and cap refill < 2 seconds. No edema. Lungs: Respirations even, regular, and unlabored on room air. Lungs CTA bilaterally, no rhonchi, no rales, no wheezing, and no accessory muscle usage. Abdominal: soft, nontender to palpation, no guarding, no appreciable organomegaly Ext: ROM intact. No gross muscle atrophy, no contractures Neuro: Speech clear, face symmetrical and CN II-XII grossly intact with no noted focal neuro deficits Psych: Alert and oriented to person, place, time, and situation. Appropriate and pleasant affect. Assessment and Plan of Care: Newly diagnosed atrial fibrillation with RVR Mitral valve prolapse Rheumatoid arthritis -Continuation of heparin infusion, plan to transition to oral anticoagulation noe Drake tomorrow. -Continuation of Cardizem infusion -Echocardiogram -Telemetry monitoring -Additional recommendations to be made pending patient's clinical course and echocardiogram results. -TSH elevated at 14.100 with normal free T4 and total T3. Thank you for allowing us to participate in the care of this pleasant patient. Do not hesitate to contact us with questions. Nurse practitioner note has been reviewed by physician. Signing provider agrees with the documented findings, assessment, and plan of care. Past Medical History Past Medical History: Rheumatoid Arthritis (RA), Thyroid Disorder Additional Past Medical History / Comment(s): COVID 04/28 History of Any Multi-Drug Resistant Organisms: None Reported Past Surgical History: Tonsillectomy Past Anesthesia/Blood Transfusion Reactions: No Reported Reaction Past Psychological History: No Psychological Hx Reported Smoking Status: Never smoker Past Alcohol Use History: Occasional Past Drug Use History: None Reported - Past Family History Mother Family Medical History: AFIB Father Family Medical History: Coronary Artery Disease (CAD) Medications and Allergies Home Medications Medication Instructions Recorded Confirmed Type Aspirin EC [Ecotrin Low Dose] 81 mg PO DAILY 08/06/21 08/06/21 History Calcium Carbonate [Calcium] 600 mg PO DAILY 08/06/21 08/06/21 History Cholecalciferol [Vitamin D3 (25 25 mcg PO DAILY 08/06/21 08/06/21 History Mcg = 1000 Iu)] Fish Oil/Dha/Epa [Fish Oil 1,200 1 cap PO DAILY 08/06/21 08/06/21 History mg Fish Oil] Levothyroxine Sodium [Synthroid] 44 mcg PO DAILY 08/06/21 08/06/21 History Levothyroxine Sodium [Synthroid] 88 mcg PO MOTUWETHFRSA 08/06/21 08/06/21 History Multivitamins, Thera [Multivitamin 1 tab PO DAILY 08/06/21 08/06/21 History (formulary)] Turmeric Root Extract [Turmeric] 500 mg PO DAILY 08/06/21 08/06/21 History Allergies Allergy/AdvReac Type Severity Reaction Status Date / Time No Known Allergies Allergy Verified 08/06/21 08:06 Physical Exam Vitals: Vital Signs Temp Pulse Pulse Resp BP BP Pulse Ox 08/06/21 08:00 97.6 F 66 18 115/61 96 08/06/21 06:31 98.2 F 79 16 94/61 96 08/06/21 05:59 80 18 112/73 95 08/06/21 05:09 118 H 20 120/70 98 08/06/21 04:34 85 18 98/64 96 08/06/21 03:04 105 H 20 150/85 98 08/06/21 02:00 135 H 08/06/21 01:34 98.0 F 65 20 177/76 98 Intake and Output 08/05/21 08/06/21 08/06/21 22:59 06:59 14:59 Intake Total 21.946 Balance 21.946 Intake: Intake, IV Titration 21.946 Amount Heparin Sod,Pork in 0.45% 21.946 NaCl 25,000 unit In 0.45 % NaCl 1 250ml.bag @ 12 UNITS/KG/HR 9.144 mls/hr IV .Q24H [facility] Rx#: [id number] Other: Weight 76.204 kg Results 08/06/21 04:40 08/06/21 01:53 Cardiac Enzymes 08/06/21 08/06/21 08/06/21 Range/Units 01:53 01:53 04:40 AST 29 (14-36) U/L Troponin I <0.012 <0.012 (0.000-0.034) ng/mL 08/06/21 Range/Units 07:53 AST (14-36) U/L Troponin I <0.012 (0.000-0.034) ng/mL Coagulation 08/06/21 08/06/21 Range/Units 01:53 04:40 PT 10.3 11.2 (9.0-12.0) sec APTT 24.0 81.3 H (22.0-30.0) sec CBC 08/06/21 08/06/21 Range/Units 01:53 04:40 WBC 7.0 5.9 (3.8-10.6) k/uL RBC 4.65 4.31 (3.80-5.40) m/uL Hgb 15.2 14.0 (11.4-16.0) gm/dL Hct 44.3 41.5 (34.0-46.0) % Plt Count 210 189 (150-450) k/uL Comprehensive Metabolic Panel 08/06/21 Range/Units 01:53 Sodium 142 (137-145) mmol/L Potassium 4.4 (3.5-5.1) mmol/L Chloride 108 H (98-107) mmol/L Carbon Dioxide 29 (22-30) mmol/L BUN 13 (7-17) mg/dL Creatinine 0.64 (0.52-1.04) mg/dL Glucose 129 H (74-99) mg/dL Calcium 9.7 (8.4-10.2) mg/dL AST 29 (14-36) U/L ALT 25 (4-34) U/L Alkaline Phosphatase 95 (38-126) U/L Total Protein 7.5 (6.3-8.2) g/dL Albumin 4.4 (3.5-5.0) g/dL Current Medications Generic Name Dose Route Start Last Admin Trade Name Freq PRN Reason Stop Dose Admin Heparin Sodium (Porcine) 0 unit 08/06/21 03:45 Heparin Sodium 1,000 Un/Ml (10ml Vl) IV PER PROTOCOL PRN Low PTT Protocol Diltiazem HCl 125 mg/ Sodium 125 mls @ 10 mls/hr 08/06/21 02:00 08/06/21 02:14 Chloride IV 10 mg/hr .[id number] [facility] 10 mls/hr Administration 10 MG/HR Heparin Sodium/Sodium Chloride 250 mls @ 9.144 mls/hr 08/06/21 03:45 08/06/21 06:31 25,000 unit/ Sodium Chloride IV 10 units/kg/hr .Q24H [facility] 7.62 mls/hr Titration Protocol 12 UNITS/KG/HR Nitroglycerin 0.4 mg 08/06/21 04:59 Nitroglycerin Sl Tabs 0.4 Mg Tab SUBLINGUAL Q5M PRN Chest Pain Intake and Output 08/05/21 08/06/21 08/06/21 22:59 06:59 14:59 Intake Total 21.946 Balance 21.946 Intake: Intake, IV Titration 21.946 Amount Heparin Sod,Pork in 0.45% 21.946 NaCl 25,000 unit In 0.45 % NaCl 1 250ml.bag @ 12 UNITS/KG/HR 9.144 mls/hr IV .Q24H [facility] Rx#: [id number] Other: Weight 76.204 kg 08/06/21 04:40 08/06/21 01:53
--- NOTE | 2021-08-06 14:30 | ECHOF ---
Referral Reason:afib MEASUREMENTS -------- HEIGHT: 172.7 cm WEIGHT: 76.2 kg BP: 94/61 RVIDd: 3.2 cm (< 3.3) IVSd: 1.4 cm (0.6 - 1.1) LVIDd: 4.2 cm (3.9 - 5.3) LVPWd: 1.7 cm (0.6 - 1.1) IVSs: 1.9 cm LVIDs: 1.8 cm LVPWs: 2.5 cm LAESV Index (A-L): 40.60 ml/m Ao Diam: 3.3 cm (2.0 - 3.7) AV Cusp: 2.6 cm (1.5 - 2.6) LA Diam: 3.8 cm (2.7 - 3.8) AR PHT: 605 ms RAP: 5.00 mmHg RVSP: 40.71 mmHg FINDINGS -------- Atrial fibrillation. This was a technically adequate study. The left ventricular size is normal. There is moderate concentric left ventricular hypertrophy. O verall left ventricular systolic function is normal with, an EF between 55 - 60 %. Left ventricular fillimg pressure cannot be estimated due to Atrial fibrillation. The right ventricle is normal in size. LA is moderately dilated 34-39 ml/m2 The right atrium is mildly enlarged. Interatrial and interventricular septum intact. There is moderate aortic regurgitation. There is no evidence of aortic stenosis. The mitral valve leaflets are moderately thickened. Moderate mitral regurgitation is present. The re is moderate mitral valve prolapse. Hiae-st-khkfamru tricuspid regurgitation present. There is mild to moderate pulmonary hypertension. The right ventricular systolic pressure, as measured by Doppler, is 40.71mmHg. There is no pulmonic regurgitation present. The aortic root size is normal. Normal inferior vena cava with normal inspiratory collapse consistent with estimated right atrial pre ssure of 5 mmHg. There is no pericardial effusion. CONCLUSIONS -------- 1. This was a technically adequate study. 2. The left ventricular size is normal. 3. There is moderate concentric left ventricular hypertrophy. 4. Overall left ventricular systolic function is normal with, an EF between 55 - 60 %. 5. LA is moderately dilated 34-39 ml/m2 6. The right atrium is mildly enlarged. 7. There is moderate aortic regurgitation. 8. The mitral valve leaflets are moderately thickened. 9. Moderate mitral regurgitation is present. 10. There is moderate mitral valve prolapse. 11. Gajz-hm-dvqoncsw tricuspid regurgitation present. 12. There is mild to moderate pulmonary hypertension. 13. The right ventricular systolic pressure, as measured by Doppler, is 40.71mmHg. WEIGHT SHIFTER: Dayanna Cisneros RDCS
[2021-08-06] MEDS ORDERED: MELATONIN 3 MG TABLET PO PRN (20:43)
[2021-08-06] MEDS: METOPROLOL TARTRATE 25 MG TAB PO SCH (22:55)
[2021-08-07 03:40] VITALS: RESP 16
[2021-08-07] MEDS: DILTIAZEM 125 MG in SODIUM CHLORIDE 0.9% 100 ML IV SCH (04:20)
[2021-08-07] MEDS: HEPARIN SOD,PORK IN 0.45% NACL 25,000 UNIT in 0.45% NACL 1 250ML.BAG IV SCH (04:20)
[2021-08-07 07:39] VITALS: BP 98/60; PULSE 59; TEMP 98.5
[2021-08-07] MEDS: METOPROLOL TARTRATE 25 MG TAB PO SCH (07:39)
[2021-08-07 08:22] LABS: Basophils # (A) 0.1 k/uL (0-0.2); Basophils % (A) 1 %; Eosinophils # (A) 0.1 k/uL (0-0.7); Eosinophils % (A) 2 %; HCT 44.6 % (34.0-46.0); HGB 14.7 gm/dL (11.4-16.0); Lymphocytes # (A) 3.2 k/uL (1.0-4.8); Lymphocytes % (A) 55 %; MCH 31.7 pg (25.0-35.0); MCV 96.1 fL (80.0-100.0); Mean Platelet Volume 7.9; Monocytes # (A) 0.3 k/uL (0-1.0); Monocytes % (A) 5 %; Neutrophils % (A) 35 %; Platelet Count 224 k/uL (150-450); RBC 4.65 m/uL (3.80-5.40); RDW 13.3 % (11.5-15.5); WBC 5.8 k/uL (3.8-10.6)
[2021-08-07 08:36] LABS: Prothrombin Time 11.2 sec (9.0-12.0)
[2021-08-07 08:40] LABS: African American GFR (CKD) >90 (>60 ml/min/1.73 sqM); Anion Gap 5 mmol/L; Blood Urea Nitrogen 15 mg/dL (7-17); Calcium 9.3 mg/dL (8.4-10.2); Carbon Dioxide 24 mmol/L (22-30); Chloride 112 mmol/L (98-107); Glucose 100 mg/dL (74-99); Non-African American GFR(CKD) 86 (>60 ml/min/1.73 sqM); Potassium 4.5 mmol/L (3.5-5.1); Sodium 141 mmol/L (137-145)
--- NOTE | 2021-08-07 10:48 | P.DS ---
Providers Date of admission: 08/06/21 07:25 Expected date of discharge: 08/07/21 Attending physician: Leonora Del Castillo MD Consults: 08/06/21 03:45 Consult Physician Urgent Consulting Provider: Macario Mccurdy Consult Reason/Comments: afib Do you want consulting provider notified?: Yes Primary care physician: Jose Miguel Swann MD Hospital Course: Patient is a 66-year-old female with a PMH of rheumatoid arthritis (not on medications), and mitral valve prolapse who presented to the emergency room with complaints of palpitations. The patient reports that she woke up suddenly tonight at 11 PM with severe palpitations. She reports having a long-standing history of mitral valve prolapse for which she had been following with cardiology for several years. She reports having undergone an EKG and subsequently a stress test this past after which she wore a Holter monitor for 24 hours. She reports being told that all her testing was unremarkable. She denied any prior history of A. fib but did state a significant family history with multiple family members including 2 siblings and her mother being diagnosed with A. fib with mitral valve prolapse. The patient reported feeling better at time of interview. She reported significant improvement in her palpitations and denied any additional complaints. She denied chest discomfort, shortness of breath, nausea, dizziness, diaphoresis. Also denied fever, chills, cough, abdominal pain, diarrhea. EKG in emergency room revealed A. fib with RVR at 127 bpm with an incomplete right bundle branch block. Chest x-ray was unremarkable. Laboratory evaluation was remarkable for TSH of 14.1. During the hospital stay the patient was started on Cardizem drip as well as heparin drip. Patient been transitioned over to oral medication she is currently on metoprolol 25 mg twice a day and transition to eliquis 5 mg twice a day. Patient has been explained the risks and benefits situation regarding anticoagulation. She is agreeable. Patient is also asked to follow-up with her aviation metalsmith regarding her thyroid. She does have a history of hyperthyroidism status post radioactive ablation. Patient states she will foll ow-up with her aviation metalsmith and primary care doctor to get her thyroid panel repeated. 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 Patient Condition at Discharge: Good Plan - Discharge Summary Discharge Rx Participant: No New Discharge Prescriptions: New Apixaban [Eliquis] 5 mg PO BID 30 Days #60 tab Metoprolol Tartrate [Lopressor] 25 mg PO BID 30 Days #60 tab Continue Cholecalciferol [Vitamin D3 (25 Mcg = 1000 Iu)] 25 mcg PO DAILY Fish Oil/Dha/Epa [Fish Oil 1,200 mg Fish Oil] 1 cap PO DAILY Multivitamins, Thera [Multivitamin (formulary)] 1 tab PO DAILY Aspirin EC [Ecotrin Low Dose] 81 mg PO DAILY Calcium Carbonate [Calcium] 600 mg PO DAILY Levothyroxine Sodium [Synthroid] 44 mcg PO DAILY Levothyroxine Sodium [Synthroid] 88 mcg PO MOTUWETHFRSA Turmeric Root Extract [Turmeric] 500 mg PO DAILY Discharge Medication List Aspirin EC [Ecotrin Low Dose] 81 mg PO DAILY 08/06/21 [History] Calcium Carbonate [Calcium] 600 mg PO DAILY 08/06/21 [History] Cholecalciferol [Vitamin D3 (25 Mcg = 1000 Iu)] 25 mcg PO DAILY 08/06/21 [History] Fish Oil/Dha/Epa [Fish Oil 1,200 mg Fish Oil] 1 cap PO DAILY 08/06/21 [History] Levothyroxine Sodium [Synthroid] 44 mcg PO DAILY 08/06/21 [History] Levothyroxine Sodium [Synthroid] 88 mcg PO MOTUWETHFRSA 08/06/21 [History] Multivitamins, Thera [Multivitamin (formulary)] 1 tab PO DAILY 08/06/21 [History] Turmeric Root Extract [Turmeric] 500 mg PO DAILY 08/06/21 [History] Apixaban [Eliquis] 5 mg PO BID 30 Days #60 tab 08/07/21 [Rx] Metoprolol Tartrate [Lopressor] 25 mg PO BID 30 Days #60 tab 08/07/21 [Rx] Follow up Appointment(s)/Referral(s): Jose Miguel Swann MD [Primary Care Provider] - 1-2 days Macario Mccurdy MD [STAFF PHYSICIAN] - 1 Week Discharge Disposition: HOME SELF-CARE
[2021-08-07] MEDS ORDERED: APIXABAN 5 MG TAB PO SCH (11:00)
[2021-08-07 11:31] LABS: Chol/HDL Ratio 4.76 Ratio; LDL Cholesterol,Calculated 120.3 mg/dL (0.0-131.0)
--- NOTE | 2021-08-07 13:43 | P.PN ---
Subjective Progress Note Date: 08/07/21 History of presenting illness:: Patient is a very pleasant 66-year-old female with a past medical history of rheumatoid arthritis and mitral valve prolapse. She presented to the emergency department overnight with a chief complaint of palpitations and feeling as though her heart was beating very fast. Patient was found to be in atrial fibrillation with RVR. EKG revealing A. fib RVR at 127 bpm. CBC and CMP unremarkable. Troponins negative 3. TSH elevated at 14.100 with normal free T4 and total T3. Patient admitted under internal medicine services and we were consulted for cardiac management. At time of assessment patient remained in atrial fibrillation with rate fluctuating between 80s and 110s. She reported continued palpitations but denied having any headache, lightheadedness, dizziness, chest pain, shortness of breath, dyspnea with exertion, abdominal pain, nausea, vomiting, or experiencing any numbness/tingling/weakness/swelling in her extremities. Patient reports she follows closely outpatient with her PCP and site controller and last appointment with cardiology approximately one week ago where she underwent evaluation and stress test secondary to previously known mitral valve prolapse. 08/07/21 Patient seen and fully evaluated at the bedside. Heparin infusion discontinued and patient started on oral anticoagulation with Eliquis. Patient's rate rem ains controlled on metoprolol 25 mg twice daily. Echocardiogram reviewed revealing a normal EF between 55 and 60% with moderate aortic and tricuspid regurgitation, moderate mitral valve prolapse, and mild to moderate pulmonary hypertension. Patient reports feeling great this morning denies having any complaints including headache, lightheadedness, dizziness, chest pain, palpitations, or any shortness of breath. Physical exam: Vital signs reviewed and stable. General: Nontoxic, no distress and appears stated age. Derm: Skin warm and dry, normal coloration for ethnicity. Head: Atraumatic, normocephalic and symmetric. Eyes: EOMs intact, no lid lag, and anicteric sclera Mouth: no lip lesions, mucus membranes moist Cardiovascular: Irregularly irregular rhythm with controlled rate, systolic murmur present. Positive posterior tibial pulses bilaterally, and cap refill < 2 seconds. No edema. Lungs: Respirations even, regular, and unlabored on room air. Lungs CTA bilaterally, no rhonchi, no rales, no wheezing, and no accessory muscle usage. Abdominal: soft, nontender to palpation, no guarding, no appreciable organomegaly Ext: ROM intact. No gross muscle atrophy, no contractures Neuro: Speech clear, face symmetrical and CN II-XII grossly intact with no noted focal neuro deficits Psych: Alert and oriented to person, place, time, and situation. Appropriate and pleasant affect. Assessment and Plan of Care: Newly diagnosed atrial fibrillation with RVR Mitral valve prolapse Moderate pulmonary hypertension Rheumatoid arthritis -Continuation of oral anticoagulation with Eliquis . -Continuation of metoprolol 25 mg twice daily -Echocardiogram reviewed revealing a normal EF between 55 and 60% with moderate aortic and tricuspid regurgitation, moderate mitral valve prolapse, and mild to moderate pulmonary hypertension. -TSH elevated at 14.100 with normal free T4 and total T3. -Patient cleared from cardiology perspective, recommending patient to follow up outpatient with site controller in 1-2 weeks. Thank you for allowing us to participate in the care of this pleasant patient. Do not hesitate to contact us with questions. Nurse practitioner note has been reviewed by physician. Signing provider agrees with the documented findings, assessment, and plan of care. Objective - Vital Signs Vital signs: Vital Signs Temp 98.5 F 08/07/21 07:39 Pulse 59 L 08/07/21 07:39 Resp 16 08/07/21 07:39 BP 98/60 08/07/21 07:39 Pulse Ox 97 08/07/21 07:39 Intake & Output 08/06/21 08/07/21 08/07/21 18:59 06:59 18:59 Intake Total 303.486 27.416 Balance 303.486 27.416 Weight 79.5 kg Intake: Intake, IV Titration 303.486 27.416 Amount Diltiazem 125 mg In 225 27.416 Sodium Chloride 0.9% 100 ml @ 15 MG/HR 15 mls/hr IV .Q8H20M [facility] Rx#: [id number] Heparin Sod,Pork in 0.45% 78.486 NaCl 25,000 unit In 0.45 % NaCl 1 250ml.bag @ 12 UNITS/KG/HR 9.144 mls/hr IV .Q24H [facility] Rx#: [id number] Other: # Voids 1 - Labs CBC & Chem 7: 08/07/21 07:42 08/07/21 07:42 Labs: Abnormal Lab Results - Last 24 Hours (Table) 08/06/21 08/06/21 08/07/21 Range/Units 13:25 23:59 07:42 APTT 40.6 H 49.4 H (22.0-30.0) sec Chloride 112 H (98-107) mmol/L Glucose 100 H (74-99) mg/dL HDL Cholesterol 39.90 L (40.00-60.00) mg/dL
== END 2021-08-07 12:09 | disposition home or self-care (01) | DRG 310 ==
LOC: EC 01:32 → 3SCARD 04:59 → OBSVTOIN 07:25
PROVIDERS: ADMIT Internal Medicine; ATTEND Internal Medicine
DX: I48.91 Unspecified atrial fibrillation (principal); I08.3 Combined rheumatic disorders of mitral, aortic and tricuspid valves; I27.20 Pulmonary hypertension, unspecified; I45.10 Unspecified right bundle-branch block; M06.9 Rheumatoid arthritis, unspecified; Z20.822 Contact with and (suspected) exposure to COVID-19; Z79.01 Long term (current) use of anticoagulants; Z79.82 Long term (current) use of aspirin; Z79.890 Hormone replacement therapy; Z79.899 Other long term (current) drug therapy; Z82.49 Family history of ischemic heart disease and other diseases of the circulatory system
CPT/HCPCS: 36415; 71046; 80048; 80053; 80061; 83735; 84439; 84443; 84480; 84484; 85025; 85610; 85730; 87635; 93005; 93306; 96365; 96366; 96368; 96375; 99285

== ENCOUNTER → 2022-05-18 | Outpatient (CLI) | payer MEDICARE ==
--- NOTE | 2022-05-18 16:22 | MM ---
Reason for Exam: Screening (asymptomatic). Last mammogram was performed 1 year(s) and 2 month(s) ago. Patient History: Menarche at age 12. First Full-Term at age 29. Postmenopausal. Hormonal Contraceptives, starting at age 46 for 4 years. Risk Values: Penelope 5 year model risk: 1.9%. NCI Lifetime model risk: 6.4%. Prior Study Comparison: 03/19/2019 Bilateral Screening Mammogram, [facility]. 03/18/2020 Bilateral Screening Mammogram, [facility]. 03/28/2021 Bilateral Screening Mammogram, [facility]. Tissue Density: There are scattered fibroglandular densities. Findings: Analyzed By CAD. Pattern appears stable. No suspicious groups of microcalcifications, spiculated or lobular masses, architectural distortion or other secondary signs of malignancy are mammographically apparent. Overall Assessment: Benign, BI-RAD 2 Management: Screening Mammogram of both breasts in 1 year. A negative mammogram report should not preclude additional follow up of suspicious palpable abnormalities. Patient should continue monthly self breast exam. A clinical breast exam by your physician is recommended on an annual basis and results should be correlated with mammographic findings. Electronically signed and approved by: Jameel Tirado D.O. Radiologis
== END | disposition home or self-care (01) ==
LOC: RADMAMWWP 07:08
PROVIDERS: ATTEND Family Medicine
DX: Z12.31 Encounter for screening mammogram for malignant neoplasm of breast (principal); Z78.0 Asymptomatic menopausal state
CPT/HCPCS: 77063; 77067

== ENCOUNTER → 2023-05-22 | Outpatient (CLI) | payer MEDICARE ==
--- NOTE | 2023-05-24 15:36 | MM ---
Reason for Exam: Screening (asymptomatic). Last screening mammogram was performed 12 month(s) ago. Patient History: Menarche at age 12. First Full-Term at age 29. Postmenopausal. Hormonal Contraceptives, starting at age 46 for 4 years. Daughter had breast cancer, age 38. Risk Values: Penelope 5 year model risk: 3.4%. NCI Lifetime model risk: 10.7%. Prior Study Comparison: 03/18/2020 Bilateral Screening Mammogram, [facility]. 03/28/2021 Bilateral Screening Mammogram, [facility]. 05/18/2022 Bilateral MG 3D screening mammo w/cad, [facility]. Tissue Density: There are scattered fibroglandular densities. Findings: Analyzed By CAD. Pattern appears symmetrical and stable. Scattered benign calcifications are. No significant interval change is evident. No suspicious groups of microcalcifications, spiculated or lobular masses, architectural distortion or other secondary signs of malignancy are mammographically apparent. Overall Assessment: Benign, BI-RAD 2 Management: Screening Mammogram of both breasts in 1 year. A negative mammogram report should not preclude additional follow up of suspicious palpable abnormalities. Patient should continue monthly self breast exam. A clinical breast exam by your physician is recommended on an annual basis and results should be correlated with mammographic findings. Electronically signed and approved by: Jameel Tirado D.O. Radiologis
== END | disposition home or self-care (01) ==
LOC: RADMAMWWP 09:20
PROVIDERS: ATTEND Family Medicine
DX: Z12.31 Encounter for screening mammogram for malignant neoplasm of breast (principal); Z80.3 Family history of malignant neoplasm of breast; Z78.0 Asymptomatic menopausal state
CPT/HCPCS: 77063; 77067

== ENCOUNTER → 2024-07-11 | Outpatient (CLI) | payer MEDICARE ==
--- NOTE | 2024-07-14 08:20 | MM ---
Reason for Exam: Screening (asymptomatic). Last mammogram was performed 1 year(s) and 2 month(s) ago. Patient History: Menarche at age 12. First Full-Term at age 29. Postmenopausal. Hormonal Contraceptives, starting at age 46 for 4 years. Daughter had breast cancer, age 38. Risk Values: Penelope 5 year model risk: 3.4%. NCI Lifetime model risk: 10.2%. Prior Study Comparison: 03/28/2021 Bilateral Screening Mammogram, [facility]. 05/18/2022 Bilateral MG 3D screening mammo w/cad, [facility]. 05/22/2023 Bilateral MG 3D screening mammo w/cad, [facility]. Tissue Density: There are scattered areas of fibroglandular density. Findings: Analyzed By CAD. Right breast: There is no suspicious group of microcalcifications or new suspicious mass. Left breast: There is no suspicious group of microcalcifications or new suspicious mass. Overall Assessment: Negative, BI-RAD 1 Management: Screening Mammogram of both breasts in [address] [facility] will attempt to contact patient to return for supplemental views and ultrasound if indicated. Patient should continue monthly self-breast exams. A clinical breast exam by your physician is recommended on an annual basis. This exam should not preclude additional follow-up of suspicious palpable abnormalities. Note on Penelope scores and lifetime risk: 1. A Penelope score greater than 3% is considered moderate risk. If this is the case, consider specialist referral to assess eligibility for a risk reducing agent. 2. If overall lifetime risk for the development of breast cancer is 20% or higher, the patient may qualify for future screening with alternating mammogram and breast MRI. [facility], , 07/14/2024 8:17 AM. Electronically signed and approved by: Leo Castillo DO
== END | disposition home or self-care (01) ==
LOC: RADMAMWWP 09:53
PROVIDERS: ATTEND Family Medicine
DX: Z12.31 Encounter for screening mammogram for malignant neoplasm of breast (principal); Z78.0 Asymptomatic menopausal state; Z80.3 Family history of malignant neoplasm of breast; R92.323 Mammographic fibroglandular density, bilateral breasts
CPT/HCPCS: 77063; 77067